=== PATIENT | female | born 1960 | race African-American/Black ===

== ENCOUNTER 2021-03-05 11:59 | Outpatient (CLI) | payer OTHER | END 2021-03-05 12:00 | disposition home or self-care (01) | LOC: CSHLAB 11:59 | PROVIDERS: ATTEND Student in an Organized Health Care Education/Training Program | DX: Z01.812 Encounter for preprocedural laboratory examination (principal); Z20.822 Contact with and (suspected) exposure to COVID-19; D25.9 Leiomyoma of uterus, unspecified; N95.0 Postmenopausal bleeding; R10.2 Pelvic and perineal pain | CPT/HCPCS: 80053; 85027; 86850; 86900; 86901; U0003; U0005 ==

== ENCOUNTER 2021-03-10 06:13 | Inpatient (IN) | payer OTHER ==
[2021-03-05 15:28] LABS: Hemoglobin 13.1 g/dL (12.0-15.5); Mean Corpuscular HGB CONC 31.4 g/dL (32.0-36.0); Mean Corpuscular Hemoglobin 27.5 pg (27.0-33.0); Mean Corpuscular Volume 87.4 fl (81.6-98.3); Mean Platelet Volume 9.6 fl (7.4-10.4); Platelet Count 299 10x3/uL (150-450); RBC Distribution Width 13.8 % (11.5-14.5); Red Blood Cell (RBC) Count 4.77 10x6/uL (3.90-5.03); White Blood Cell (WBC) Count 4.8 10x3/uL (3.5-10.5)
[2021-03-05 15:52] LABS: ALT (SGPT) 24 U/L (8-55); AST (SGOT) 16 U/L (5-34); Albumin 4.4 g/dL (3.5-5.0); Alkaline Phosphatase 61 U/L (40-110); Anion Gap 15 mmol/L (10-20); BUN (Urea Nitrogen) 18 mg/dL (9.8-20.1); Bilirubin, Total 0.3 mg/dL (0.2-1.2); Calc. Creatinine Clearance 0 mL/min (70-130); Calcium 9.5 mg/dL (7.8-10.44); Carbon Dioxide 23 mmol/L (22-29); Chloride 107 mmol/L (98-107); Globulin 2.5 g/dL (2.4-3.5); Glucose 105 mg/dL (70-105); Potassium 4.3 mmol/L (3.5-5.1); Protein, Total 6.9 g/dL (6.0-8.3); Sodium 141 mmol/L (136-145)
[2021-03-06 14:28] LABS: SARS-CoV-2 PCR by NAA Not Detected (NotDetected)
[2021-03-08 08:56] VITALS: BMI 42.4
[2021-03-10] MEDS ORDERED: Gabapentin 300 MG CAP ONE (06:14)
[2021-03-10] MEDS ORDERED: CeleCOXIB 100 MG CAP ONE (06:14)
[2021-03-10] MEDS ORDERED: Lidocaine 1% MPF 2 ML VIAL ONE (06:15)
[2021-03-10] MEDS ORDERED: Famotidine/PF 20 mg/2ml Vial ONE (06:15)
[2021-03-10] MEDS ORDERED: Bupivacaine PF 0.5% 30 ML VIAL ONE (06:57)
[2021-03-10] MEDS ORDERED: EPINEPHrine 1 MG/ML AMP ONE (06:57)
[2021-03-10] MEDS ORDERED: Fentanyl 100 MCG/2 ML VIAL ONE ×3 (06:59→11:15)
[2021-03-10] MEDS ORDERED: PROPOFOL 40 ML ONE (06:59)
[2021-03-10] MEDS ORDERED: Lidocaine 1% PF 5 ML VIAL ONE (07:00)
[2021-03-10] MEDS ORDERED: Dexamethasone 4 mg/ml Vial ONE (07:00)
[2021-03-10] MEDS ORDERED: Rocuronium Bromide 10 MG/ML (10ML VIAL) ONE (07:00)
[2021-03-10] MEDS ORDERED: Ondansetron PF 4 MG/2 ML Vial ONE (07:00)
[2021-03-10] MEDS ORDERED: Ketorolac Tromethamine 30 MG/ML VIAL ONE (07:06)
[2021-03-10] MEDS ORDERED: PHENYLEPHRINE-NS 100 MCG/ML 10 ML SYRINGE ONE ×3 (07:50→09:51)
[2021-03-10] MEDS ORDERED: Albumin 5% 250 ML ONE (09:52)
[2021-03-10] MEDS ORDERED: ceFOXitin 1 GM VIAL ONE (10:16)
[2021-03-10] MEDS ORDERED: HYDROmorphone 0.5 MG/0.5 ML SYRINGE ONE (10:28)
[2021-03-10] MEDS ORDERED: SUGAMMADEX SODIUM 200 MG/2 ML VIAL ONE (10:28)
[2021-03-10] MEDS ORDERED: Zolpidem Tartrate 5 MG TAB PO PRN (10:47)
[2021-03-10] MEDS ORDERED: Bisacodyl 10 MG SUPP PR PRN (10:47)
[2021-03-10] MEDS ORDERED: diphenhydrAMINE 25 MG CAP PO PRN (10:47)
[2021-03-10 11:36] LABS: Hemoglobin 11.8 g/dL (12.0-15.5); Platelet Count 246 10x3/uL (150-450)
[2021-03-10] MEDS ORDERED: Ketorolac Tromethamine 30 MG/ML VIAL IVP SCH (14:00)
[2021-03-10] MEDS ORDERED: Ampicillin/Sulbactam 3 GM in Sodium Chloride 0.9% 100 ML IVPB SCH (14:00)
[2021-03-10] MEDS ORDERED: FLU VACC QS2021-22(6MOS UP)/PF 60 MCG/0.5 ML SYRINGE IM ONE (15:00)
[2021-03-10] MEDS: Sodium Chloride 0.9% 1,000 ML IV SCH (15:57)
[2021-03-10] MEDS: Ketorolac Tromethamine 30 MG/ML VIAL IVP SCH ×2 (16:36→22:03)
[2021-03-10] MEDS: Ampicillin/Sulbactam 3 GM in Sodium Chloride 0.9% 100 ML IVPB SCH (22:03)
[2021-03-10] MEDS: Losartan Potassium 50 MG TAB PO SCH (22:03)
[2021-03-11] MEDS: Sodium Chloride 0.9% 1,000 ML IV SCH ×3 (04:42→21:40)
[2021-03-11 05:03] LABS: Hemoglobin 10.2 g/dL (12.0-15.5); Mean Corpuscular HGB CONC 31.9 g/dL (32.0-36.0); Mean Corpuscular Hemoglobin 27.8 pg (27.0-33.0); Mean Corpuscular Volume 87.2 fl (81.6-98.3); Mean Platelet Volume 9.5 fl (7.4-10.4); Platelet Count 207 10x3/uL (150-450); Red Blood Cell (RBC) Count 3.67 10x6/uL (3.90-5.03); White Blood Cell (WBC) Count 6.9 10x3/uL (3.5-10.5)
[2021-03-11] MEDS: Ketorolac Tromethamine 30 MG/ML VIAL IVP SCH (05:07)
[2021-03-11] MEDS: Ampicillin/Sulbactam 3 GM in Sodium Chloride 0.9% 100 ML IVPB SCH ×4 (05:08→21:39)
[2021-03-11] MEDS ORDERED: Docusate Calcium (SURFAK) 240 MG CAP PO SCH (10:15)
[2021-03-11] MEDS: Ibuprofen 800 MG TAB PO SCH ×2 (10:21→18:25)
[2021-03-11] MEDS: Simethicone Chewable 80 MG TAB PO PRN ×2 (10:22→21:38)
[2021-03-11] MEDS: HYDROcodone/Acetaminophen 7.5/325 mg Tablet PO PRN ×4 (10:22→21:39)
[2021-03-11] MEDS ORDERED: Ondansetron HCl/PF 4 MG in Sodium Chloride 0.9% 50 ML IVPB PRN (13:19)
[2021-03-11] MEDS ORDERED: Ondansetron ODT 4 MG TAB SL PRN (13:26)
[2021-03-11] MEDS: Docusate Calcium (SURFAK) 240 MG CAP PO SCH (21:38)
[2021-03-11] MEDS: Losartan Potassium 50 MG TAB PO SCH (21:40)
[2021-03-12] MEDS: Ibuprofen 800 MG TAB PO SCH ×3 (03:32→18:35)
[2021-03-12] MEDS: Ampicillin/Sulbactam 3 GM in Sodium Chloride 0.9% 100 ML IVPB SCH (04:26)
[2021-03-12] MEDS: Sodium Chloride 0.9% 1,000 ML IV SCH ×3 (04:26→11:04)
[2021-03-12] MEDS: HYDROcodone/Acetaminophen 7.5/325 mg Tablet PO PRN ×5 (04:34→18:34)
[2021-03-12] MEDS: Docusate Calcium (SURFAK) 240 MG CAP PO SCH ×2 (08:25→19:46)
[2021-03-12] MEDS: Simethicone Chewable 80 MG TAB PO PRN (19:46)
[2021-03-12] MEDS: Losartan Potassium 50 MG TAB PO SCH (19:57)
[2021-03-13] MEDS: Ibuprofen 800 MG TAB PO SCH ×2 (00:39→10:08)
[2021-03-13] MEDS: HYDROcodone/Acetaminophen 7.5/325 mg Tablet PO PRN ×2 (00:40→10:42)
[2021-03-13] MEDS: Sodium Chloride 0.9% 1,000 ML IV SCH ×3 (02:48→10:22)
[2021-03-13] MEDS ORDERED: Milk Of Magnesia 30 ML UDCUP PO PRN (06:34)
[2021-03-13 07:41] VITALS: BP 159/71; TEMP 97.9
[2021-03-13] MEDS: Docusate Calcium (SURFAK) 240 MG CAP PO SCH (10:09)
[2021-03-13] MEDS: Simethicone Chewable 80 MG TAB PO PRN (10:09)
== END 2021-03-13 14:59 | disposition home or self-care (01) | DRG 742 ==
LOC: CSHSDC 06:13 → CSHPED 12:41
PROVIDERS: ADMIT Student in an Organized Health Care Education/Training Program; ATTEND Student in an Organized Health Care Education/Training Program
PROC: 0UT90ZL Resection of Uterus, Supracervical, Open Approach (ICD-10-PCS; principal; 2021-03-10)
PROC: 0UT70ZZ Resection of Bilateral Fallopian Tubes, Open Approach (ICD-10-PCS; 2021-03-10)
PROC: 0DQL0ZZ Repair Transverse Colon, Open Approach (ICD-10-PCS; 2021-03-10)
PROC: 0UT20ZZ Resection of Bilateral Ovaries, Open Approach (ICD-10-PCS; 2021-03-10)
PROC: 0TJB8ZZ Inspection of Bladder, Via Natural or Artificial Opening Endoscopic (ICD-10-PCS; 2021-03-10)
DX: D25.9 Leiomyoma of uterus, unspecified (principal); K91.72 Accidental puncture and laceration of a digestive system organ or structure during other procedure; D62 Acute posthemorrhagic anemia; Z20.822 Contact with and (suspected) exposure to COVID-19; N95.0 Postmenopausal bleeding; Z90.89 Acquired absence of other organs; Y83.8 Other surgical procedures as the cause of abnormal reaction of the patient, or of later complication, without mention of misadventure at the time of the procedure
CPT/HCPCS: 36415; 80053; 85014; 85018; 85027; 85049; 86850; 86900; 86901; 88307; J0171; J0295; J0690; J0694; J1100; J1170; J1885; J2405; J2704; J3010; J3490; J7050; P9045; Q0162; S0020; S0028; U0003; U0005

== ENCOUNTER 2022-01-19 07:45 | Outpatient (CLI) | payer OTHER ==
[2022-01-19] MEDS ORDERED: Iopamidol 300 61% 100 ML VIAL FS ONE (09:24)
== END 2022-01-19 07:46 | disposition home or self-care (01) ==
LOC: CSHCT 07:45
PROVIDERS: ATTEND Specialist
DX: R10.33 Periumbilical pain (principal); K42.9 Umbilical hernia without obstruction or gangrene; R19.5 Other fecal abnormalities
CPT/HCPCS: 74177